=== PATIENT | female | born 1980 | race Asian ===

== ENCOUNTER 2020-03-10 12:30 | Emergency (ER) | payer OTHER ==
[~2020-03-10] VITALS: Ht 157.5 cm; Wt 73.6 kg
[~2020-03-10 12:30] MED LIST: NOCURR
[2020-03-10 12:31] VITALS: BP 102/66
[2020-03-10] MEDS ORDERED: PROZ10 PO (13:30)
[2020-03-10] MEDS ORDERED: GABA-1216 PO (13:30)
[2020-03-10] MEDS ORDERED: LIDOCAINE 1% 10 ML VIAL INJ ONE (14:45)
[2020-03-10] MEDS ORDERED: IBUPROFEN 800 MG TABLET PO ONE (14:45)
[2020-03-10] MEDS ORDERED: POVIDONE-IODINE 10% 15 ML SOLUTION UD TP ONE (14:45)
== END 2020-03-10 16:45 | disposition home or self-care (01) ==
LOC: EMS 12:37
DX: L02.01 Cutaneous abscess of face (principal); F17.210 Nicotine dependence, cigarettes, uncomplicated
CPT/HCPCS: 10060; 99282; J3490

== ENCOUNTER 2023-04-12 16:48 | Inpatient (IN) | payer OTHER ==
[~2023-04-12] VITALS: Ht 154.9 cm; Wt 79.1 kg
[~2023-04-12 16:48] MED LIST changes: +FLUO10CA24 PO; +GABA-1216 PO
[2023-04-12] MEDS ORDERED: KETOROLAC TROMETHAMINE 30 MG/ML VIAL IVP ONE (17:45)
[2023-04-12] MEDS ORDERED: ONDANSETRON HCL 4 MG/2 ML VIAL IVP ONE (17:45)
[2023-04-12] MEDS ORDERED: FLUO10CA24 PO (17:55)
[2023-04-12] MEDS ORDERED: ESCI20TA87 PO (18:06)
[2023-04-12] MEDS ORDERED: METF-1211 PO (18:06)
[2023-04-12 18:08] LABS: BASOPHILS % (AUTO) 0.4 % (0.0-2.0); EOSINOPHILS % (AUTO) 0.6 % (1.0-6.0); HEMATOCRIT 39.6 % (36-46); HEMOGLOBIN 13.3 g/dL (12.0-16.0); LYMPHOCYTES # (AUTO) 2.1 K/uL (1.0-4.8); LYMPHOCYTES % (AUTO) 24.9 % (22.0-44.0); MEAN CORPUSCULAR HEMOGLOBIN 31.2 pg (26.0-34.0); MEAN CORPUSCULAR HGB CONC 33.6 G/dL (31.0-37.0); MEAN CORPUSCULAR VOLUME 93 fL (80-100); MONOCYTES # (AUTO) 0.6 K/uL (0.1-1.0); MONOCYTES % (AUTO) 7.4 % (2.0-9.0); NEUTROPHILS # (AUTO) 5.6 K/uL (1.8-7.7); NEUTROPHILS % (AUTO) 66.7 % (40.0-70.0); PLATELET COUNT (AUTO) 300 K/uL (150-450); RED BLOOD CELL COUNT(AUTO) 4.27 MIL/uL (4.00-5.20); RED CELL DISTRIBUTION WIDTH 13.3 % (11.5-14.5); WHITE BLOOD COUNT (AUTO) 8.4 K/uL (4.5-11.0)
[2023-04-12 18:17] LABS: ANION GAP 6 mmol/L (8-16); CALCIUM, TOTAL 8.6 mg/dL (8.8-10.5); CARBON DIOXIDE 30 mmol/L (22-29); CHLORIDE 100 mmol/L (98-107); CREATININE 0.68 mg/dL (0.60-1.30); GLOMERULAR FILTR. RATE CALC > 60 mL/min (>60); GLUCOSE,RANDOM 95 mg/dL (70-110); POTASSIUM 3.5 mmol/L (3.5-5.1); SODIUM SERUM 136 mmol/L (136-145); UREA NITROGEN, BLOOD 9 mg/dL (7-18)
[2023-04-12 18:25] LABS: APPEARANCE,URINE CLEAR (CLEAR); BILIRUBIN,URINE NEGATIVE (NEGATIVE); COLOR,URINE YELLOW (YELLOW); GLUCOSE, URINE (UA) NEGATIVE (NEGATIVE); KETONES,URINE 40-60 mg/dL (NEGATIVE); LEUKOCYTE ESTERASE ,URINE NEGATIVE (NEGATIVE); NITRATE,URINE NEGATIVE (NEGATIVE); OCCULT BLOOD,URINE NEGATIVE (NEGATIVE); PROTEIN,URINE TRACE mg/dL (NEGATIVE); UROBILINOGEN,URINE <=1.0 mg/dL (<=1.0)
[2023-04-12 18:26] LABS: COVID AG,FIA SOURCE NASAL SWAB
[2023-04-12 18:26] LABS: TROPONIN I-HIGH SENSITIVITY 4 ng/L (<51)
[2023-04-12 18:32] LABS: ALANINE AMINOTRANSFERASE 58 U/L (12-78); ALBUMIN 3.5 g/dL (3.4-5.0); ALKALINE PHOSPHATASE 69 U/L (46-116); ASPARTATE AMINOTRANSFERASE 42 U/L (15-37); BILIRUBIN,TOTAL 0.3 mg/dL (0.1-1.0); CREATINE KINASE, TOTAL ONLY 94 U/L (26-192); TOTAL PROTEIN, SERUM 7.9 g/dL (6.4-8.2)
[2023-04-12 18:45] LABS: SARS-COV2 (COVID) ANTIGEN,FIA Negative (Negative)
[2023-04-12] MEDS ORDERED: 0.9% SODIUM CHLORIDE 10 ML SYRINGE IVP PRN (20:45)
[2023-04-12] MEDS ORDERED: ONDANSETRON HCL 4 MG/2 ML VIAL IVP PRN (20:45)
[2023-04-12] MEDS ORDERED: ACETAMINOPHEN 325 MG TABLET PO PRN ×2 (20:45→21:00)
[2023-04-12] MEDS ORDERED: CloNIDine HCL 0.1 MG TABLET PO PRN (21:00)
[2023-04-12] MEDS ORDERED: PROMETHAZINE HCL 25 MG TABLET PO PRN (21:00)
[2023-04-12] MEDS ORDERED: HydrOXYzine PAMOATE 50 MG CAPSULE PO PRN (21:00)
[2023-04-12] MEDS ORDERED: DICYCLOMINE HCL 10 MG CAPSULE PO PRN (21:00)
[2023-04-12] MEDS ORDERED: LOPERAMIDE HCL 2 MG CAPSULE PO PRN (21:00)
[2023-04-12] MEDS ORDERED: MAG HYDROX/AL HYDROX/SIMETH ES 30 ML SUSPENSION UDCUP PO PRN ×2 (21:00)
[2023-04-12] MEDS ORDERED: IPRATROPIUM BROMIDE 0.5 MG/2.5 ML NEB SOLUTION NEB PRN (21:00)
[2023-04-12] MEDS ORDERED: BACLOFEN 10 MG TABLET PO PRN (21:00)
[2023-04-12] MEDS ORDERED: ALBUTEROL SULFATE 2.5 MG/0.5 ML NEB SOLUTION NEB PRN (21:00)
[2023-04-12] MEDS ORDERED: LOPERAMIDE HCL 2 MG/15 ML SUSPENSION UDCUP PO PRN (21:00)
[2023-04-12] MEDS ORDERED: IBUPROFEN 600 MG TABLET PO PRN (21:00)
[2023-04-12 21:19] LABS: ALCOHOL, URINE DRUG SCREEN NEGATIVE (NEGATIVE); AMPHET/METH SCREEN,URINE POSITIVE (NEGATIVE); BARBITURATE SCREEN, URINE NEGATIVE (NEGATIVE); BENZODIAZEPINES SCREEN,URINE NEGATIVE (NEGATIVE); CANNABINOID SCREEN,URINE NEGATIVE (NEGATIVE); COCAINE SCREEN,URINE NEGATIVE (NEGATIVE); METHADONE SCREEN, URINE NEGATIVE (NEGATIVE); OPIATE SCREEN,URINE NEGATIVE (NEGATIVE); PHENCYCLIDINE SCREEN,URINE NEGATIVE (NEGATIVE)
[2023-04-12] MEDS: DOCUSATE SODIUM 100 MG CAPSULE PO SCH (21:44)
[2023-04-12] MEDS: SODIUM CHLORIDE 0.45% 1,000 ML IV SCH (21:45)
[2023-04-13] MEDS: HEPARIN SODIUM,PORCINE 5,000 UNITS/ML VIAL SQ SCH ×3 (00:50→17:09)
[2023-04-13 05:17] LABS: BASOPHILS % (AUTO) 0.6 % (0.0-2.0); EOSINOPHILS % (AUTO) 1.4 % (1.0-6.0); HEMATOCRIT 37.6 % (36-46); HEMOGLOBIN 12.5 g/dL (12.0-16.0); LYMPHOCYTES # (AUTO) 2.7 K/uL (1.0-4.8); LYMPHOCYTES % (AUTO) 38.8 % (22.0-44.0); MEAN CORPUSCULAR HGB CONC 33.4 G/dL (31.0-37.0); MEAN CORPUSCULAR VOLUME 93 fL (80-100); MONOCYTES # (AUTO) 0.6 K/uL (0.1-1.0); MONOCYTES % (AUTO) 8.6 % (2.0-9.0); NEUTROPHILS # (AUTO) 3.5 K/uL (1.8-7.7); NEUTROPHILS % (AUTO) 50.6 % (40.0-70.0); PLATELET COUNT (AUTO) 254 K/uL (150-450); RED BLOOD CELL COUNT(AUTO) 4.05 MIL/uL (4.00-5.20); RED CELL DISTRIBUTION WIDTH 13.1 % (11.5-14.5); WHITE BLOOD COUNT (AUTO) 6.9 K/uL (4.5-11.0)
[2023-04-13 05:36] LABS: ALANINE AMINOTRANSFERASE 56 U/L (12-78); ALKALINE PHOSPHATASE 58 U/L (46-116); ANION GAP 10 mmol/L (8-16); ASPARTATE AMINOTRANSFERASE 43 U/L (15-37); BILIRUBIN,TOTAL 0.4 mg/dL (0.1-1.0); CALCIUM, TOTAL 7.9 mg/dL (8.8-10.5); CARBON DIOXIDE 24 mmol/L (22-29); CHLORIDE 100 mmol/L (98-107); CREATININE 0.53 mg/dL (0.60-1.30); GLOMERULAR FILTR. RATE CALC > 60 mL/min (>60); GLUCOSE,RANDOM 76 mg/dL (70-110); SODIUM SERUM 134 mmol/L (136-145); TOTAL PROTEIN, SERUM 6.8 g/dL (6.4-8.2); UREA NITROGEN, BLOOD 8 mg/dL (7-18)
[2023-04-13 05:42] LABS: POTASSIUM 2.9 mmol/L (3.5-5.1)
[2023-04-13] MEDS ORDERED: POTASSIUM CHL 10 MEQ/WATER 50 ML IV PRN (07:00)
[2023-04-13] MEDS ORDERED: POTASSIUM CHLORIDE 10% 40 MEQ/30 ML LIQUID UDCUP PO PRN ×2 (07:00)
[2023-04-13] MEDS ORDERED: POTASSIUM CHLORIDE 20 MEQ ER TABLET PO PRN ×2 (07:00)
[2023-04-13] MEDS: POTASSIUM CHL 10 MEQ/WATER 50 ML IV PRN ×4 (07:25→17:08)
[2023-04-13] MEDS: LORazepam 1 MG TABLET PO PRN ×2 (08:22→18:13)
[2023-04-13 08:26] LABS: GLUCOMETER DEV NAME(LOC) ERT.5; GLUCOSE,POINT OF CARE 74 MG/DL (70-110)
[2023-04-13] MEDS: DOCUSATE SODIUM 100 MG CAPSULE PO SCH ×2 (09:22→20:59)
[2023-04-13] MEDS: FAMOTIDINE 20 MG TABLET PO SCH (09:22)
[2023-04-13] MEDS: SODIUM CHLORIDE 0.45% 1,000 ML IV SCH (10:25)
[2023-04-13] MEDS: HydrOXYzine PAMOATE 50 MG CAPSULE PO PRN (11:20)
[2023-04-13 15:21] LABS: GLUCOMETER DEV NAME(LOC) ERT.5; GLUCOSE,POINT OF CARE 92 MG/DL (70-110)
[2023-04-13 16:00] VITALS: BP 115/77; PULSE 106; RESP 17; TEMP 98.1; O2SAT 96
[2023-04-13 20:00] VITALS: BP 139/82; PULSE 88; RESP 19; TEMP 98.6; O2SAT 97
[2023-04-13] MEDS ORDERED: INFLUENZA VIRUS VACCINE QVS 2023-24 (6MO+)/PF 60 MCG/0.5 ML SYRINGE IM. ONE (20:00)
[2023-04-13] MEDS ORDERED: DEXTROSE 50%-WATER 25 GM/50 ML SYRINGE IVP PRN (20:15)
[2023-04-13] MEDS ORDERED: INSULIN LISPRO 100 UNITS/ML SQ PRN (20:15)
[2023-04-13] MEDS: TraZODone HCL 50 MG TABLET PO PRN (21:44)
[2023-04-13] MEDS: ETHYL ALCOHOL 62% ANTISEPTIC NASAL SANITIZER 0.6 ML AMPUL NASAL SCH (21:45)
[2023-04-13] MEDS ORDERED: IBUPROFEN 600 MG TABLET PO PRN (22:45)
[2023-04-13] MEDS ORDERED: MAG HYDROX/AL HYDROX/SIMETH ES 30 ML SUSPENSION UDCUP PO PRN (22:45)
[2023-04-14] VITALS: BP 145/97; PULSE 85; RESP 23; TEMP 99.9; O2SAT 93
[2023-04-14] MEDS: HEPARIN SODIUM,PORCINE 5,000 UNITS/ML VIAL SQ SCH ×3 (00:10→18:07)
[2023-04-14] MEDS: LORazepam 1 MG TABLET PO PRN ×4 (00:29→21:54)
[2023-04-14] MEDS: SODIUM CHLORIDE 0.45% 1,000 ML IV SCH (00:45)
[2023-04-14 04:00] VITALS: BP 137/93; PULSE 79; RESP 23; TEMP 98.8; O2SAT 95
[2023-04-14 04:31] LABS: GLUCOSE,POINT OF CARE 142 MG/DL (70-110)
[2023-04-14 05:08] LABS: BASOPHILS % (AUTO) 0.4 % (0.0-2.0); EOSINOPHILS % (AUTO) 1.3 % (1.0-6.0); HEMATOCRIT 38.8 % (36-46); LYMPHOCYTES # (AUTO) 3.1 K/uL (1.0-4.8); MEAN CORPUSCULAR HEMOGLOBIN 31.1 pg (26.0-34.0); MEAN CORPUSCULAR HGB CONC 33.6 G/dL (31.0-37.0); MEAN CORPUSCULAR VOLUME 92 fL (80-100); MONOCYTES # (AUTO) 0.7 K/uL (0.1-1.0); NEUTROPHILS # (AUTO) 3.9 K/uL (1.8-7.7); NEUTROPHILS % (AUTO) 50.3 % (40.0-70.0); PLATELET COUNT (AUTO) 273 K/uL (150-450); RED CELL DISTRIBUTION WIDTH 13.2 % (11.5-14.5); WHITE BLOOD COUNT (AUTO) 7.9 K/uL (4.5-11.0)
[2023-04-14 05:15] LABS: ANION GAP 9 mmol/L (8-16); CALCIUM, TOTAL 8.4 mg/dL (8.8-10.5); CARBON DIOXIDE 23 mmol/L (22-29); CHLORIDE 104 mmol/L (98-107); CREATININE 0.55 mg/dL (0.60-1.30); GLOMERULAR FILTR. RATE CALC > 60 mL/min (>60); GLUCOSE,RANDOM 99 mg/dL (70-110); POTASSIUM 3.5 mmol/L (3.5-5.1); SODIUM SERUM 136 mmol/L (136-145); UREA NITROGEN, BLOOD 6 mg/dL (7-18)
[2023-04-14 07:00] LABS: GLUCOSE,POINT OF CARE 94 MG/DL (70-110)
[2023-04-14 08:00] VITALS: BP 120/85; PULSE 74; RESP 23; TEMP 98.7; O2SAT 96
[2023-04-14] MEDS: ETHYL ALCOHOL 62% ANTISEPTIC NASAL SANITIZER 0.6 ML AMPUL NASAL SCH ×2 (09:01→20:35)
[2023-04-14] MEDS: DOCUSATE SODIUM 100 MG CAPSULE PO SCH ×2 (09:02→20:35)
[2023-04-14] MEDS: FAMOTIDINE 20 MG TABLET PO SCH (09:02)
[2023-04-14 12:00] VITALS: BP 121/73; PULSE 74; PULSE 94; RESP 22; TEMP 99.4; O2SAT 94
[2023-04-14 16:00] VITALS: BP 129/84; PULSE 99; RESP 18; TEMP 98.3; O2SAT 94
[2023-04-14 17:47] LABS: GLUCOSE,POINT OF CARE 114 MG/DL (70-110)
[2023-04-14] MEDS: TraZODone HCL 50 MG TABLET PO PRN (20:35)
[2023-04-14] MEDS: ACETAMINOPHEN 325 MG TABLET PO PRN (20:35)
[2023-04-14 20:39] VITALS: BP 125/57; PULSE 100; RESP 20; TEMP 98.1; O2SAT 94
[2023-04-14] MEDS: HydrOXYzine PAMOATE 50 MG CAPSULE PO PRN (21:45)
[2023-04-14] MEDS: ZOLPIDEM TARTRATE 5 MG TABLET PO PRN (21:54)
[2023-04-14 23:36] LABS: GLUCOMETER DEV NAME(LOC) 4E.2; GLUCOSE,POINT OF CARE 125 MG/DL (70-110)
[2023-04-15] MEDS: HEPARIN SODIUM,PORCINE 5,000 UNITS/ML VIAL SQ SCH ×4 (00:12→23:12)
[2023-04-15] MEDS ORDERED: ZOLPIDEM TARTRATE 5 MG TABLET PO ONE (01:30)
[2023-04-15] MEDS ORDERED: LORazepam 1 MG TABLET PO ONE (01:30)
[2023-04-15 04:15] VITALS: BP 137/77; PULSE 97; RESP 20; TEMP 97.7; O2SAT 98
[2023-04-15] MEDS: ACETAMINOPHEN 325 MG TABLET PO PRN ×2 (04:16→20:50)
[2023-04-15 08:17] VITALS: BP 122/81; PULSE 85; RESP 20; TEMP 98; O2SAT 99
[2023-04-15] MEDS: ETHYL ALCOHOL 62% ANTISEPTIC NASAL SANITIZER 0.6 ML AMPUL NASAL SCH ×2 (09:00→20:49)
[2023-04-15] MEDS: DOCUSATE SODIUM 100 MG CAPSULE PO SCH ×2 (09:00→20:49)
[2023-04-15] MEDS ORDERED: PEG 3350/NA SULF,BICARB,CL/KCL 4000 ML SOLUTION PO SCH (09:00)
[2023-04-15] MEDS: FAMOTIDINE 20 MG TABLET PO SCH (09:00)
[2023-04-15] MEDS: HydrOXYzine PAMOATE 50 MG CAPSULE PO PRN ×2 (11:01→20:50)
[2023-04-15 16:01] VITALS: BP 116/82; PULSE 113; RESP 18; TEMP 98.2; O2SAT 98
[2023-04-15 16:34] VITALS: BP 138/81; PULSE 98; RESP 20; TEMP 98.7; O2SAT 97
[2023-04-15 18:22] LABS: GLUCOMETER DEV NAME(LOC) 6N.2B; GLUCOSE,POINT OF CARE 134 MG/DL (70-110)
[2023-04-15 18:22] LABS: GLUCOMETER DEV NAME(LOC) 6N.2B; GLUCOSE,POINT OF CARE 127 MG/DL (70-110)
[2023-04-15 19:46] VITALS: BP 103/61; PULSE 82; RESP 18; TEMP 98.7; O2SAT 95
[2023-04-15] MEDS: ZOLPIDEM TARTRATE 5 MG TABLET PO PRN (20:50)
[2023-04-15] MEDS: TraZODone HCL 50 MG TABLET PO PRN (22:10)
[2023-04-16 00:01] LABS: GLUCOMETER DEV NAME(LOC) 4E.2; GLUCOSE,POINT OF CARE 116 MG/DL (70-110)
[2023-04-16] MEDS: DOCUSATE SODIUM 100 MG CAPSULE PO SCH (07:56)
[2023-04-16] MEDS: HEPARIN SODIUM,PORCINE 5,000 UNITS/ML VIAL SQ SCH (07:56)
[2023-04-16] MEDS: FAMOTIDINE 20 MG TABLET PO SCH (07:56)
[2023-04-16] MEDS: HydrOXYzine PAMOATE 50 MG CAPSULE PO PRN (07:57)
[2023-04-16 08:06] VITALS: BP 113/73; PULSE 87; RESP 18; TEMP 98.8
[2023-04-16] MEDS: ETHYL ALCOHOL 62% ANTISEPTIC NASAL SANITIZER 0.6 ML AMPUL NASAL SCH (09:00)
[2023-04-16] MEDS ORDERED: PEG 3350/NA SULF,BICARB,CL/KCL 4000 ML SOLUTION PO SCH (09:00)
[2023-04-16 09:55] VITALS: BP 118/72; RESP 18; O2SAT 98
[2023-04-16 12:01] LABS: GLUCOMETER DEV NAME(LOC) 4E.2; GLUCOSE,POINT OF CARE 147 MG/DL (70-110)
[2023-04-16] MEDS ORDERED: CLON1PAT12 TD (12:30)
[2023-04-16 18:51] LABS: GLUCOMETER DEV NAME(LOC) 6S.1B; GLUCOSE,POINT OF CARE 85 MG/DL (70-110)
[2023-04-17 03:06] LABS: HEPATITIS A ANTIBODY IGM Negative (Negative); HEPATITIS B CORE IGM Negative (Negative)
[2023-04-19] MEDS ORDERED: CloNIDine 0.1 MG/24 HOUR PATCH TD SCH (09:00)
== END 2023-04-16 17:40 | DRG 394 ==
LOC: EMS 16:49 → ICUN 04-13 03:30 → ICU 04-13 15:05 → 6S 04-14 18:58
PROVIDERS: ADMIT Hospitalist; ATTEND Hospitalist
DX: T18.9XXA Foreign body of alimentary tract, part unspecified, initial encounter (principal); F11.13 Opioid abuse with withdrawal; F33.2 Major depressive disorder, recurrent severe without psychotic features; I10 Essential (primary) hypertension; E11.9 Type 2 diabetes mellitus without complications; F15.10 Other stimulant abuse, uncomplicated; Z72.0 Tobacco use; Z79.899 Other long term (current) drug therapy; Z79.84 Long term (current) use of oral hypoglycemic drugs
CPT/HCPCS: 70450; 71045; 71250; 72192; 74150; 80048; 80053; 80074; 80307; 81003; 82550; 82962; 83735; 83880; 84132; 84484; 84703; 85025; 87081; 93005; 99285; G0378; G0480; J1644; J1885; J2405; J3480; 36415-L1; 36415-TC